=== PATIENT | female | born 1985 | race Caucasian/White ===

== ENCOUNTER 2018-01-01 13:15 | Emergency (ER) | payer MEDICAID ==
[~2018-01-01] VITALS: Ht 172.7 cm; Wt 80.0 kg
[2018-01-01 13:30] VITALS: BP 156/84; PULSE 105; RESP 16; TEMP 98.3; O2SAT 100
[2018-01-01] MEDS ORDERED: PRENTAB7 (13:39)
[2018-01-01] MEDS ORDERED: OMEP20TA93 PO (13:39)
[2018-01-01] MEDS ORDERED: SODIUM CHLOR 0.9% 1000 ML INJ 1,000 ML IV SCH (14:12)
--- NOTE | 2018-01-01 14:12 | PD ---
HPI Chief Complaint: Medical Clearance Time Seen by Provider: 13:52 Travel History International Travel<30 days: No Contact w/Intl Traveler<30days: No Traveled to known affect area: No History of Present Illness HPI 32-year-old female presents to the emergency department with complaint of redness and swelling to her right forearm to a peripheral IV site that she had iron infusions 2 through, last given yesterday. She delivered twins this past Wednesday and reports having a lot of blood loss. Reports hemoglobin dropped to around 6 and she had iron transfusion and then it came up and decreased again yesterday with repeat iron transfusion yesterday. She was discharged yesterday from [facility]. She is also complaining of feeling lightheaded. She denies dizziness, chest pain, shortness of breath, fever, vomiting. She says she feels like she looks pale. Reports feeling lethargic, but has also been trying to pump every 3 hours to produce milk. Says she has not been sleeping a lot. She has been going to the NICU to visit her twins. She is still having some vaginal bleeding and reports it as being like a normal menses type bleeding. No known aggravating or relieving factors. Symptoms are moderate in severity. No known allergies. MEDICAL RECORD ASSISTANT is Dr. Pepper. Denies significant past medical history. Has no other medical complaints. No other modifying factors or associated signs and symptoms. PFSH Past Medical History ?: Not Social History Alcohol Use: No Tobacco Use: No Allergies-Medications (Allergen,Severity, Reaction): Coded Allergies: caffeine (Verified Allergy, Severe, 01/01/18) Reported Meds & Prescriptions Reported Meds & Active Scripts Active Keflex (Cephalexin) 500 Mg Cap 500 Mg PO Q6H 7 Days Ferrous Sulfate 325 Mg (65 Mg Iron) Tablet 325 Mg PO BIDPC Reported Omeprazole 20 Mg Tab 20 Mg PO DAILY Vitamins Tablet (Pnv No.95/Ferrous Fum/Folic AC) 28 Mg Iron-800 Mcg Tablet Review of Systems Except as stated in HPI: all other systems reviewed are Neg Physical Exam Narrative GENERAL: Well-nourished, well-developed female patient, in no acute distress; afebrile, nontoxic-appearing SKIN: Slightly pale. Warm and dry. May have erythema and warmth to touch to the right forearm; minimal edema to the site; no fluctuance or palpable abscess ; area marked with a surgical marker. No lymphangitis. Right upper extremity is supple and non-tense with 2+ radial pulse and sensory intact. HEAD: Atraumatic. Normocephalic. EYES: Pupils equal and round. No scleral icterus. No injection or drainage. ENT: Mucosa pink and moist. Airway patent. NECK: Trachea midline. CARDIOVASCULAR: Regular rate and rhythm. No murmur appreciated. RESPIRATORY: No accessory muscle use. Clear to auscultation. Breath sounds equal bilaterally. GASTROINTESTINAL: Rounded. MUSCULOSKELETAL: No obvious deformities. No clubbing. No cyanosis. No edema. NEUROLOGICAL: Awake and alert. Oriented 3. No obvious cranial nerve deficits. Motor grossly within normal limits. Normal speech. PSYCHIATRIC: Appropriate mood and affect; insight and judgment normal. Data Data Last Documented VS Vital Signs Date Time Temp Pulse Resp B/P (MAP) Pulse Ox O2 Delivery O2 Flow Rate FiO2 01/01/18 14:19 18 01/01/18 13:30 98.3 105 156/84 (108) 100 Orders Orders Cephalexin (Keflex) (01/01/18 14:15) Basic Metabolic Panel (Bmp) (01/01/18 14:12) Complete Blood Count With Diff (01/01/18 14:12) Iv Access Insert/Monitor (01/01/18 14:12) Sodium Chlor 0.9% 1000 Ml Inj (Ns 1000 M (01/01/18 14:12) Sodium Chloride 0.9% Flush (Ns Flush) (01/01/18 14:15) Ed Discharge Order (01/01/18 16:19) Labs Laboratory Tests Test 01/01/18 14:18 White Blood Count 12.6 TH/MM3 Red Blood Count 2.79 MIL/MM3 Hemoglobin 7.0 GM/DL Hematocrit 21.9 % Mean Corpuscular Volume 78.6 FL Mean Corpuscular Hemoglobin 25.0 PG Mean Corpuscular Hemoglobin Concent 31.9 % Red Cell Distribution Width 15.3 % Platelet Count 221 TH/MM3 Mean Platelet Volume 7.3 FL Neutrophils (%) (Auto) 73.8 % Lymphocytes (%) (Auto) 16.4 % Monocytes (%) (Auto) 7.6 % Eosinophils (%) (Auto) 2.0 % Basophils (%) (Auto) 0.2 % Neutrophils # (Auto) 9.3 TH/MM3 Lymphocytes # (Auto) 2.1 TH/MM3 Monocytes # (Auto) 1.0 TH/MM3 Eosinophils # (Auto) 0.2 TH/MM3 Basophils # (Auto) 0.0 TH/MM3 CBC Comment AUTO DIFF Differential Total Cells Counted 100 Neutrophils % (Manual) 80 % Band Neutrophils % 6 % Lymphocytes % 10 % Monocytes % 1 % Neutrophils # (Manual) 11.2 TH/MM3 Metamyelocytes 2 % Myelocytes 1 % Nucleated Red Blood Cells 1 /100 WBC Differential Comment FINAL DIFF MANUAL Platelet Estimate NORMAL Platelet Morphology Comment NORMAL Blood Urea Nitrogen 7 MG/DL Creatinine 0.54 MG/DL Random Glucose 84 MG/DL Calcium Level 8.4 MG/DL Sodium Level 142 MEQ/L Potassium Level 4.1 MEQ/L Chloride Level 106 MEQ/L Carbon Dioxide Level 25.3 MEQ/L Anion Gap 11 MEQ/L Estimat Glomerular Filtration Rate 132 ML/MIN MDM Medical Decision Making Medical Screen Exam Complete: Yes Emergency Medical Condition: Yes Medical Record Reviewed: Yes Differential Diagnosis Anemia, low hemoglobin, cellulitis, soft tissue inflammation secondary to IV infusion Narrative Course 32-year-old female post vaginal delivery of twins this past Wednesday with possible cellulitis of the right forearm after IV transfusion of iron 2. Also complaining of feeling lightheaded and lethargic. I reviewed her medical record from her visit for delivery ([id number]) and her hemoglobin on December 30 was 7.0; hemoglobin yesterday was 6.7 and that was after a second iron transfusion. I discussed the patient with Dr. Springer, my attending physician, and plan of care discussed. Area of redness to the right forearm was marked with a surgical marker. CBC, BMP, IV, normal saline bolus, Keflex ordered. 1605: Hemoglobin 7.0. BMP unremarkable. Reviewed labs with Dr. Springer and plan of care for discharge discussed. Ferrous sulfate, Keflex prescribed for home. Discussed reasons for the patient to return to the emergency department. Instructed patient to follow-up with shade cloth finisher. Instructed patient to follow up with primary care provider. Patient verbalizes understanding and agreement with treatment plan. Patient is medically cleared and stable for discharge. Discussed reasons to return to the emergency department. Patient agrees with treatment plan. The patients vital signs are stable and the patient is stable for outpatient follow-up and treatment. Patient discharged home, stable and in no acute distress. Diagnosis Primary Impression: Anemia Qualified Codes: D64.9 - Anemia, unspecified Additional Impression: Cellulitis of forearm, right Referrals: Mail Processing Clerk Primary Care Physician Patient Instructions: Anemia (ED), Cellulitis (ED), General Instructions Additional Instructions: Ferrous sulfate as prescribed Keflex as prescribed for suspected cellulitis of the right forearm Warm compresses to the affected area Tylenol as directed and as needed for pain Follow-up with primary care provider Follow-up with your shade cloth finisher for hemoglobin recheck and follow-up Return to the emergency department immediately with worsening of symptoms, particularly as discussed Med/Other Pt SpecificInfo: Prescription(s) given Scripts Cephalexin (Keflex) 500 Mg Cap 500 MG PO Q6H for Infection for 7 Days, #28 CAP 0 Refills Prov: Sydnee Gupta 01/01/18 Ferrous Sulfate (Ferrous Sulfate) 325 Mg (65 Mg Iron) Tablet 325 MG PO BIDPC for Nutritional Supplement, #60 TAB 0 Refills Prov: Sydnee Gupta 01/01/18 Disposition: 01 DISCHARGE HOME Condition: Stable Sydnee Gupta Jan 01, 2018 14:12
[2018-01-01] MEDS ORDERED: CEPHALEXIN MONOHYDRATE 500 MG CAP PO ONE (14:15)
[2018-01-01] MEDS ORDERED: SODIUM CHLORIDE 0.9% FLUSH 10 ML FLUSH IV FLUSH PRN (14:15)
[2018-01-01 15:13] LABS: AUTOMATED NEUTROPHIL # 9.3 TH/MM3 (1.8-7.7); BASOPHIL % 0.2 % (0.0-2.0); EOSINOPHIL # 0.2 TH/MM3 (0-0.4); HEMATOCRIT 21.9 % (35.0-46.0); LYMPH % 16.4 % (9.0-44.0); LYMPHOCYTE # 2.1 TH/MM3 (1.0-4.8); MEAN CELL VOLUME 78.6 FL (80.0-100.0); MEAN CORPUSCULAR HGB CONC 31.9 % (32.0-36.0); MEAN PLATELET VOLUME 7.3 FL (7.0-11.0); MONO % 7.6 % (0.0-8.0); NEUT % 73.8 % (16.0-70.0); PLATELET COUNT 221 TH/MM3 (150-450); RED BLOOD COUNT 2.79 MIL/MM3 (4.00-5.30); RED CELL DISTRIBUTION WIDTH 15.3 % (11.6-17.2); WHITE BLOOD COUNT 12.6 TH/MM3 (4.0-11.0)
--- NOTE | 2018-01-01 15:35 | PD ---
Physical Exam Date Seen by Provider: Jan 01, 2018 Narrative This is a patient who is recently status post the delivery of twins. She has had anemia which has been treated with IV iron. She comes in to us today with redness, pain and swelling of the right forearm where she had iron infusions 2. Data Data Last Documented VS Vital Signs Date Time Temp Pulse Resp B/P (MAP) Pulse Ox O2 Delivery O2 Flow Rate FiO2 01/01/18 14:19 18 01/01/18 13:30 98.3 105 156/84 (108) 100 Orders Orders Cephalexin (Keflex) (01/01/18 14:15) Basic Metabolic Panel (Bmp) (01/01/18 14:12) Complete Blood Count With Diff (01/01/18 14:12) Iv Access Insert/Monitor (01/01/18 14:12) Sodium Chlor 0.9% 1000 Ml Inj (Ns 1000 M (01/01/18 14:12) Sodium Chloride 0.9% Flush (Ns Flush) (01/01/18 14:15) Labs Laboratory Tests Test 01/01/18 14:18 White Blood Count 12.6 TH/MM3 Red Blood Count 2.79 MIL/MM3 Hemoglobin 7.0 GM/DL Hematocrit 21.9 % Mean Corpuscular Volume 78.6 FL Mean Corpuscular Hemoglobin 25.0 PG Mean Corpuscular Hemoglobin Concent 31.9 % Red Cell Distribution Width 15.3 % Platelet Count 221 TH/MM3 Mean Platelet Volume 7.3 FL Neutrophils (%) (Auto) 73.8 % Lymphocytes (%) (Auto) 16.4 % Monocytes (%) (Auto) 7.6 % Eosinophils (%) (Auto) 2.0 % Basophils (%) (Auto) 0.2 % Neutrophils # (Auto) 9.3 TH/MM3 Lymphocytes # (Auto) 2.1 TH/MM3 Monocytes # (Auto) 1.0 TH/MM3 Eosinophils # (Auto) 0.2 TH/MM3 Basophils # (Auto) 0.0 TH/MM3 CBC Comment AUTO DIFF MDM Supervised Visit with RERE: Yes Narrative Course I, Dr. Springer, have reviewed the advance practice practitioner's documentation and am in agreement, met with the patient face to face, made the diagnosis, and the medical decision making was done by me. *My assessment and Findings: She has some mild redness, swelling, warmth and tenderness of the right forearm. It appears to be a mild case of cellulitis versus phlebitis secondary to the IV iron. She will be treated with Keflex. Suha Springer MD Jan 01, 2018 15:35
[2018-01-01 15:36] LABS: BICARBONATE 25.3 MEQ/L (21.0-32.0); CALCIUM 8.4 MG/DL (8.5-10.1); CREATININE 0.54 MG/DL (0.50-1.00)
[2018-01-01 15:42] LABS: BANDS 6 % (0-6); CORRECTED NUCLEATED RBC 1 /100 WBC (0-0); LYMPHOCYTES 10 % (9-44); METAMYELOCYTES 2 % (0-1); MONOCYTES 1 % (0-8); MYELOCYTES 1 % (0-0); NEUTROPHIL # MANUAL DIFF 11.2 TH/MM3 (1.8-7.7); NUCLEATED RED BLOOD CELL 1 (0-0); POLYS (SEG NEUTROPHILS) 80 % (16-70)
[2018-01-01] MEDS ORDERED: FERR325T18 PO (16:18)
[2018-01-01] MEDS ORDERED: CEPH-460 PO (16:18)
[2018-01-02] MEDS ORDERED: CLIN300C5 PO (18:01)
== END 2018-01-01 16:34 | disposition home or self-care (01) ==
LOC: NEPD 13:15
DX: O90.81 Anemia of the puerperium (principal); D64.9 Anemia, unspecified; L03.113 Cellulitis of right upper limb
CPT/HCPCS: 80048; 85007; 85027; 96360; 99284; J7030

== ENCOUNTER 2018-01-02 15:48 | Emergency (ER) | payer MEDICAID ==
[~2018-01-02] VITALS: Ht 172.7 cm; Wt 80.0 kg
[~2018-01-02 15:48] MED LIST: CEPH-460 PO; FERR325T18 PO; OMEP20TA93 PO; PRENTAB7
[2018-01-02 16:01] VITALS: BP 157/88; PULSE 113; RESP 16; TEMP 98.8; O2SAT 99
--- NOTE | 2018-01-02 17:04 | PD ---
HPI Chief Complaint: Skin Problem Time Seen by Provider: 17:03 Travel History International Travel<30 days: No Contact w/Intl Traveler<30days: No Traveled to known affect area: No History of Present Illness HPI 32-year-old female came to the emergency room with history right wrist redness and swelling since past 3 days. Patient is day 4 and she developed anemia after the delivery and received iron transfusion. The area of her IV site is the one that looks red at this point. She was in the emergency room yesterday for the same pain and was discharged home on p.o. Keflex. She was asked to return if the redness spread which it did. No history of fever or chills. Patient was little tachycardic in triage. However patient says that in her especially in the last trimester she has been tachycardic. She was afebrile and blood pressure was within normal limits. She says she is otherwise feeling good. The area is sore and tender to touch. No radiation of the pain. No streaking noticed. She has started taking the Keflex that she supposed to. [facility] Past Medical History Narrative Medical List of her past medical, surgical, social and family history is reviewed from the nursing note. ?: Not Social History Alcohol Use: No Tobacco Use: No Allergies-Medications (Allergen,Severity, Reaction): Coded Allergies: caffeine (Verified Allergy, Severe, 01/02/18) Comments List of her allergies reviewed from the nursing note. Reported Meds & Prescriptions Reported Meds & Active Scripts Active Clindamycin (Clindamycin HCl) 300 Mg Cap 300 Mg PO TID 10 Days Keflex (Cephalexin) 500 Mg Cap 500 Mg PO Q6H 7 Days Ferrous Sulfate 325 Mg (65 Mg Iron) Tablet 325 Mg PO BIDPC Reported Omeprazole 20 Mg Tab 20 Mg PO DAILY Vitamins Tablet (Pnv No.95/Ferrous Fum/Folic AC) 28 Mg Iron-800 Mcg Tablet Narrative Medication List of her home medications reviewed from the nursing note. Review of Systems Except as stated in HPI: all other systems reviewed are Neg Physical Exam Narrative GENERAL: Awake, alert, no obvious distress SKIN: Focused skin assessment warm/dry. Right wrist radial aspect has an indurated swelling that is tender and warm to touch and has a skin marking around it. There is more redness that spread around the marking. The total area of the redness is about 7 x 7 cm. No streaking. No significant fluctuance. HEAD: Atraumatic. Normocephalic. EYES: Pupils equal and round. No scleral icterus. No injection or drainage. ENT: No nasal bleeding or discharge. Mucous membranes pink and moist. NECK: Trachea midline. No JVD. CARDIOVASCULAR: Regular rate and rhythm. No murmur appreciated. RESPIRATORY: No accessory muscle use. Clear to auscultation. Breath sounds equal bilaterally. GASTROINTESTINAL: Abdomen soft, non-tender, nondistended. Hepatic and splenic margins not palpable. MUSCULOSKELETAL: No obvious deformities. No clubbing. No cyanosis. No edema. NEUROLOGICAL: Awake and alert. No obvious cranial nerve deficits. Motor grossly within normal limits. Normal speech. PSYCHIATRIC: Appropriate mood and affect; insight and judgment normal. Data Data Last Documented VS Vital Signs Date Time Temp Pulse Resp B/P (MAP) Pulse Ox O2 Delivery O2 Flow Rate FiO2 01/02/18 16:01 98.8 113 16 157/88 (111) 99 Orders Orders Wound Culture And Gram Stain (01/02/18 17:32) Lidocai-Epi 1%-1:100,000 Inj (Xylocaine- (01/02/18 17:45) Ed Discharge Order (01/02/18 17:59) MDM Medical Decision Making Medical Screen Exam Complete: Yes Emergency Medical Condition: Yes Medical Record Reviewed: Yes Differential Diagnosis Cellulitis, MRSA, iron infiltration Narrative Course 6:09 PM based on the bedside ultrasound and fluid collection noticed I did a needle aspiration. This was pretty much a dry aspirate. Few drops of blood/ serous drainage came out which was sent for culture. Please refer to my procedure note. I have added clindamycin to the Keflex. Patient is discharged home with instructions. I have asked her to follow-up with Dr. Pepper her OB early next week. Procedures Procedure Narrative Emergency department soft-tissue/musculoskeletal ultrasound was performed with patient consent. Linear probe was used in the transverse and sagittal views in the area of interest with evidence of fluid collection subcutaneously noticed. Needle aspiration was done after the area was cleaned with alcohol and 1% lidocaine with epi 1 mL was infiltrated. 18-gauge needle was inserted and the syringe suctioned. Just 1 drop of blood came out which was sent for culture. The needle was taken out. Patient tolerated the procedure well. Pressure was applied to the area and dry dressing was applied EKG Prior to Arrival: No Diagnosis Primary Impression: Cellulitis of forearm, right Referrals: Rosalba Pepper MD 2 days Additional Instructions: Take the additional antibiotic prescription as per the direction. Follow-up with your OB in couple days. Return to the ER if the condition worsens or any other new concerns. Apply warm moist compress on the area which would allow the antibiotic to work better. Med/Other Pt SpecificInfo: Prescription(s) given Scripts Clindamycin (Clindamycin) 300 Mg Cap 300 MG PO TID for Infection for 10 Days, CAP 0 Refills Prov: Vandana Li MD 01/02/18 Disposition: 01 DISCHARGE HOME Condition: Stable Vandana iL MD Jan 02, 2018 17:04
[2018-01-02] MEDS ORDERED: LIDOCAINE 1%/EPINEPHrine 1:100,000 SOLN 20 ML VIAL INFIL ONE (17:45)
[2018-01-02] MEDS ORDERED: CLIN300C5 PO (18:01)
== END 2018-01-02 18:08 | disposition home or self-care (01) ==
LOC: NEPD 15:48
DX: L03.113 Cellulitis of right upper limb (principal); D64.9 Anemia, unspecified; Z79.899 Other long term (current) drug therapy
CPT/HCPCS: 10160; 87070; 87205